=== PATIENT | female | born 1945 | race Caucasian/White ===

== ENCOUNTER 2024-09-04 06:03 | Day surgery (SDC) | payer OTHER, SELFPAY ==
[2024-09-04] VITALS (9 sets, daily range): BP systolic 121–174; BP diastolic 62–94; PULSE 55–61; RESP 16; TEMP 36.5–36.8; O2SAT 92–100; BMI 35.9
--- OUTSIDE RECORDS SUMMARY | 2024-09-04 06:11 | XMS_ITS | Clinical Summary ---
Author Organization [facility] Address [place], [place] [address] Care Team Providers Care Child Care Assistant Name Role Phone Krista Sauceda DO Primary Care Provider [phone] Allergies Active Allergy Reactions Criticality Noted Date Comments Lisinopril Cough Medium 04/24/2018 Per [facility] clinic records Nabumetone Diarrhea 08/24/2014 Nsaids (Non-Steroidal Anti-Inflammatory Drug) Diarrhea,Other - Describe In Comment Field 08/30/2012 Due to heartburn Sulfa (Sulfonamide Antibiotics) Other - Describe In Comment Field,Rash 08/30/2012 Fluid retention Medications Medication Sig Dispensed Refills Start Date End Date Status allopurinoL (ZYLOPRIM) 100 mg tablet Take 100 mg by mouth two times daily. 02/25/2024 Active amLODIPine (NORVASC) 10 mg tablet Take 10 mg by mouth once daily. Active ascorbic acid, vitamin C, (VITAMIN C) 500 mg tablet Take 500 mg by mouth once daily. Active blood sugar diagnostic strip As directed once daily. 01/03/2024 5 Active FreeStyle Rosi 3 Sensor for continuous blood glucose monitor (CGM) As directed 1 Kit every 2 weeks. 10/11/2023 4 Active buPROPion (WELLBUTRIN XL) 300 mg Extended-Release tablet Take 300 mg by mouth once daily. Active diclofenac topical (VOLTAREN) 1 % gel Apply 2 g topically to affected area(s) four times daily. Active docusate (COLACE) 100 mg capsule Take 100 mg by mouth one time if needed. Active estradioL (ESTRACE) 0.01% (0.1 mg/g) vaginal cream Insert 1 g into the vagina once weekly. 01/03/2024 Active famotidine (PEPCID) 40 mg tablet Take 40 mg by mouth two times daily. 06/19/2023 Active furosemide (LASIX) 40 mg tablet Take 20 mg by mouth two times daily. 06/09/2024 Active lancets As directed once daily. 01/03/2024 Active levothyroxine (SYNTHROID) 25 mcg tablet Take 25 mcg by mouth before breakfast. Active melatonin 5 mg tab tablet Take 5 mg by mouth at bedtime. Active metoprolol succinate (TOPROL XL) 100 mg Sustained-Release tablet Take 100 mg by mouth once daily. Active nystatin 100,000 unit/g ointment Apply topically to affected area(s) 3 times daily if needed. 06/22/2024 Active pantoprazole (PROTONIX) 40 mg delayed-release tablet Take 40 mg by mouth once daily before a meal. 02/25/2024 Active potassium chloride (KLOR-CON M10) 10 mEq extended-release tablet (part/cryst) Take 40 mEq by mouth once daily with a meal. 04/13/2024 Active rOPINIRole (REQUIP) 0.25 mg tablet Take 0.25 mg by mouth two times daily. 08/30/2023 Active venlafaxine (EFFEXOR XR) 150 mg Extended-Release capsule Take 150 mg by mouth once daily with evening meal. 09/28/2023 Active medication order composer Tumeric one daily 07/26/2024 Active lactobacillus combination no.4 (Probiotic) 3 billion cell cap Take by mouth once daily. 07/26/2024 Active coenzyme q10 (CoQ-10) 100 mg cap Take 1 Capsule (100 mg) by mouth once daily. 07/26/2024 Active calcium carbonate-vitamin D3 600 mg-20 mcg (800 unit) tab Take by mouth once daily. 07/26/2024 Active acetaminophen (Tylenol Extra Strength) 500 mg tablet Take 2 Tablets (1,000 mg) by mouth every 6 hours if needed. Max acetaminophen dose: 4000mg in 24 hrs. 07/26/2024 Active warfarin (COUMADIN) 5 mg tabletIndications: Paroxysmal atrial fibrillation (HC),Anticoagulati on monitoring, INR range 2-3 Take by mouth 08/30: Hold; 08/31: Hold; 09/01: Hold; 09/02: Hold; 09/03: Hold; Otherwise 7.5 mg every day in the evening OR as directed 08/30/2024 Active warfarin (COUMADIN) 5 mg tabletIndications: Paroxysmal atrial fibrillation (HC),Anticoagulati on monitoring, INR range 2-3 Patient reports taking 1.5 tabs (7.5mg) daily 07/26/2024 4 Discontinued (Reorder (E-cancel not sent)) warfarin (COUMADIN) 5 mg tabletIndications: Paroxysmal atrial fibrillation (HC),Anticoagulati on monitoring, INR range 2-3 Take by mouth 7.5 mg (5 mg x 1.5) daily or as directed. 08/07/2024 4 Discontinued (Reorder (E-cancel not sent)) warfarin (COUMADIN) 5 mg tabletIndications: Paroxysmal atrial fibrillation (HC),Anticoagulati on monitoring, INR range 2-3 Hold 5 days (08/30 - 09/03) otherwise take by mouth 7.5 mg (5 mg x 1.5) daily in the evening or as directed. 08/29/2024 4 Discontinued (Other - add note to specify (E-cancel not sent)) Active Problems Problem Noted Date Diagnosed Date Anxiety 08/14/2024 GERD (gastroesophageal reflux disease) Hyperlipemia 08/14/2024 Hypothyroidism 08/14/2024 Impaired fasting glucose 08/14/2024 Prediabetes 08/14/2024 Sleep apnea 08/14/2024 Overview (08/14/2024): CPAP- patient using this everynight. 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 Dent - open right inguinal hernia repair with mesh) 08/29/2024 Anticoagulation (warfarin) [facility] [address] [facility] [place] [address] 1, [facility] Inr Clinic Anticoagulation (Preop OV) 08/29/2024 Travel 08/16/2024 Orders Only [facility] [address] [facility] [place] [address] Jus Dent MD <No scans attached> 08/14/2024 1:20 PM CDT Office Visit [facility] [address] [facility] [place] [address] Krista Sauceda DO Establish Care; Hand Pain/problem (Lump on R hand with R wrist pain); Derm Problem (Spots on neck ) 08/14/2024 Telephone [facility] Cancer [facility] [address] [place] [phone] [facility] Cancer Referral ( Malignant neoplasm of left female breast, unspecified estrogen receptor status) 08/14/2024 Travel 08/08/2024 Patient Outreach [facility] Care Management - Care Management Navigation/[facility] [address] [place], [place] [id number] Ranjeet Kothari [facility] (Care Guide Community Resource Navigation/) 08/04/2024 Anticoagulation (warfarin) [facility] [address] [place] [address] 1, [facility] Inr Clinic Anticoagulation 08/03/2024 2:00 PM CDT Ancillary Procedure [facility] [address] [facility] [place] [address] 08/03/2024 1:30 PM CDT Orders Only [facility] [address] [facility] [place] [address] Lab, [place] [facility] 08/03/2024 Travel 07/31/2024 1:30 PM CDT Office Visit [facility] [address] [facility] [place] [address] Jus Dent MD Consult (Left inguinal hernia referred by Maggie ADKINS) 07/31/2024 Travel 07/26/2024 Telephone [facility] [address] [place] [address] Shaqra, Krista Edwige, DO Anticoagulation (New Patient Education ) 07/26/2024 Anticoagulation (warfarin) [facility] [address] [place] [address] 1, [facility] Inr [facility] Anticoagulation (Chart Update) 07/14/2024 Telephone [facility] [address] [place] [address] Shaqra, Krista Edwige, DO Anticoagulation (Unable to Contact) 07/12/2024 Anticoagulation (warfarin) [facility] [address] [place] [address] 1, [facility] Anticoagulation 07/12/2024 Telephone [facility] [address] [place] [address] Shaqra, Krista Edwige, DO Anticoagulation (INR Orders) 07/11/2024 1:35 PM CDT Office Visit [address] [address] Maggie Houser PA Hospital F/U (Ribs/Lungs right sided - hurts especially when coughing ) 07/11/2024 Travel 07/06/2024 8:20 PM CDT - 07/06/2024 10:02 PM CDT Emergency [facility] [address] [place] [address] Kathy Becerra NP Fall, initial encounter (Primary Dx); Contusion of left knee, initial encounter; Supratherapeutic INR; Unilateral inguinal hernia without obstruction or gangrene, recurrence not specified; Contusion of right chest wall, initial encounter Discharge Disposition: Home Self Care 07/06/2024 Travel from Last 3 Months Immunizations Name Administration Dates Next Due Influenza, High-dose Inactivated 09/19/2019 Influenza, High-dose Quadrivalent Inactivated Influenza, IIV4 08/04/2021,08/09/2020 Influenza, Inactivated AIIV4 (Age 65+ Years) Preserv Free 10/28/2022 Pneumococcal Conj 20-valent (Prevnar 20) 022 Pneumococcal Poly,23-Valent (Pneumovax) 08/30/20 06 Pneumococcal conj 13-Valent (Prevnar 13) 018 RSV, Recombinant ADJ Reconst ituted (Arexvy 120MCG/0.5mL) 11/23/2023 Td (Age >=7 Years) 08/30/2006,08/30/1995 Td, Preservative Free (age >= 7 Years) 5 Tdap 02/25/2024,08/19/2012 Zoster (Shingrix-RZV, recombinant) 08/04/2024, Social History Tobacco Use Types Packs/Day Years Used Date Smoking Tobacco: Former Cigarettes Smokeless Tobacco: Never Comments:Smoked 0.5 ppd for 15 years in 20s-30s Alcohol Use Standard Drinks/Week Comments Not Currently 0 (1 standard drink = 0.6 oz pur e alcohol) Social Connections Answer Date Recorded Frequency of Communication with Friends and Fami ly 0 07/11/2024 Financial Resource Strain Answer Date R ecorded Difficulty of Paying Living Expenses 1 08/08/2024 Difficulty of Paying Living Expenses 2 08/08/2024 Food Insecurity Answer Date Recorded Worried About Running Out of Food in the Last Ye ar 1 07/11/2024 Transportation Needs Answer Date Record ed Lack of Transportation (Medical) 1 07/11/2024 Housing Stability Answer Date Recorded Unable to Pay for Housing in the Last Year 1 07/11/2024 Sex and Gender Information Value Date Recorded Sex Assigned at Not on file Gender Identity Not on file Sexual Orientation Not on file Obstetrics History Last Filed Vital Signs Vital Sign Reading Time Taken Comments Blood Pressure 122/71 08/29/2024 11:25 AM CDT Pulse 61 08/29/2024 11:25 AM CDT Temperature 36.9 ??C (98.5 ??F) 07/06/2024 8:22 PM CD T Respiratory Rate 20 07/06/2024 8:22 PM CDT Oxygen Saturation 94% 08/29/2024 11:25 AM CDT Inhaled Oxygen Concentration - - Weight 97.8 kg (215 lb 9.6 oz) 08/29/2024 11:25 AM CDT Height 165.1 cm (5' 5) 08/14/2024 1:30 PM CDT Body Mass Index 35.88 08/14/2024 1:30 PM CDT Plan of Treatment Upcoming Encounters Date Type Department Care Team (Late st Contact Info) Description 09/12/2024 1:00 PM CDT Office Visit [facility] [address] [place] [address] Abigail Caceres MD [address] [facility] [address] [place] [address] 09/13/2024 10:15 AM CDT Orders Only [facility] [address] [place] [address] [place] 09/20/2024 3:25 PM CDT Office Visit [facility] [address] [place] [address] Krista Sauceda, DO [address] [place] [address] Health Maintenance Due Date Last Done Comments Depression screening for age 12+ 1958 Hepatitis C screening for ag e 18-79 1964 DEXA/DXA scan for age 65+ 2011 Influenza for age 65+ 07/23/2024 09/14/2023 , 10/28/2022, 08/04/2021, Additional history exists COVID-19 vaccine series ( season) 2024 08/04/2024, 02/25/2024, 09/14/2023, Additional history exists Medicare Wellness for age 65+ 06/10/2025 (Verified in Care Everywhere or Patient Record) BMI (ht and wt on same day) for age 18+ 08/14/2025 08/14/2024 Tetanus booster 02/24/2034 02/25/2024, 07/24, 08/30/2006, Additional history exists Pneumococcal series for age 65+ Completed 06/05/2022, 04/07/2018, 08/30/2006 RSV vaccine for adults or Completed 11/23/2023 Tdap Completed 02/25/2024, 08/19/2012 Zoster (shingles) series for age 50+ Completed 08/04/2024, 02/25/2024 Procedures Procedure Name Priority Date/Time Associated Diagnosis Comments POTASSIUM Routine 08/29/2024 12:26 PM CDT Pre-op examination PROTIME-INR STAT 08/29/2024 12:25 PM CDT Anticoagulation monitoring, INR range 2-3 MR CHEST WWO Routine 08/03/2024 2:12 PM CDT Cyst of mediastinum INR,POCT Routine 08/03/2024 1:18 PM CDT Paroxysmal atrial fibrillation (HC) PROTIME-INR Routine 07/11/2024 2:48 PM CDT Paroxysmal atrial fibrillation (HC) CT CHEST ABDOMEN PELVIS WO STAT 07/06/2024 9:[address] HEAD BRAIN WO STAT 07/06/2024 9:14 PM CDT PROTIME-INR STAT 07/06/2024 9:13 PM CDT XR KNEE 2 VIEWS LEFT STAT 07/06/2024 9:10 PM CDT from Last 3 Months Results * POTASSIUM (08/29/2024 12:26 PM CDT) POTASSIUM 4.5 3.5 - 5.3 mmol/L [facility] Blood BLOOD SPECIMEN / Unknown 08/29/2024 12:26 PM CDT 08/29/2024 12:28 PM CDT Krista Betancourthilaria [facility] Performing Organization Address City/[facility]/ZIP Co de Phone Number [employer] [facility] [address] [place] [address], [employer] [facility] [address] [place] [address] * (ABNORMAL) PROTIME-INR (08/29/2024 12:25 PM CDT) Only the most recent of3 resultswithin the time period is included. INR 2.4(H) <1.3 08/29/2024 1:34 PM CDT [facility] PROTIME 26.1(H) 10.3 - 12.3 sec 08/29/2024 1:34 PM CDT [facility] Blood BLOOD SPECIMEN / Unknown Venipuncture / Unknown 08/29/2024 12:25 PM CDT 08/29/2024 12:[address] [facility] - 08/29/2024 1:34 PM CDT ?Therapeutic Range 2.0-3.0 for most anticoagulated patients 2.5-3.5 or 4.0 for high risk patients The INR is only used for patients on stable oral anticoagulant therapy. It makes no significant contribution to the diagnosis or treatment of patients whose Protime is prolonged for other reasons. INR results are increased when heparin levels exceed 1.0 U/mL, which corresponds to an aPTT >125 seconds if the patient is on UFH. Krista Sauceda DO HEMATOLOGY [facility] [address] [place] [id number] * MR MIROSLAVA CASTRO (08/03/2024 2:12 PM CDT) Anatomical Region Laterality Modality HEART, CHEST, THORAX Magnetic Re sonance 08/04/2024 12:5 8 PM CDT Narrative 08/04/2024 12:58 PM CDT For Patients: ??As a result of the Cures Act, medical imaging exams and procedure reports are released immediately into your electronic medical record. ??You may view this report before your referring provider. ??If you have questions, please contact your health care provider. INDICATION: Mediastinal cyst. COMPARISON: CT scan of the chest, abdomen, and pelvis dated 06 July 2024. TECHNIQUE: Chest MRI with T1, T2, and postcontrast images. Intravenous gadolinium administered. FINDINGS: 3.8 x 3.2 cm left anterior mediastinal cyst containing hemorrhagic debris with no enhancing component. No mediastinal or hilar adenopathy. Moderate hiatal hernia. Bilateral renal cysts. Impression : 1. 3.8 cm cyst containing hemorrhagic debris in the left anterior mediastinum. This could represent a thymic or pericardial cyst. Dictated by Andre Leonard MD @ 08/04/2024 12:58:54 PM (Electronically Signed) Procedure Note Andre Leonard MD - 08/04/2024 For Patients: As a result of the Cures Act, medical imagingexams and procedure reports are released immediately into your electronicmedical record. You may view this report before your referring provider.If you have questions, please contact your health care provider. INDICATION: Mediastinal cyst. COMPARISON: CT scan of the chest, abdomen, and pelvis dated 06 July 2024. TECHNIQUE: Chest MRI with T1, T2, and postcontrast images. Intravenous gadoliniumadministered. FINDINGS: 3.8 x 3.2 cm left anterior mediastinal cyst containing hemorrhagic debriswith no enhancing component. No mediastinal or hilar adenopathy. Moderate hiatal hernia. Bilateral renal cysts. Impression : 1. 3.8 cm cyst containing hemorrhagic debris in the left anteriormediastinum. This could represent a thymic or pericardial cyst. Dictated by Andre Leonard MD @ 08/04/2024 12:58:54 PM (Electronically Signed) Maggie Delia Malecha PA MR * (ABNORMAL) INR,POCT (08/03/2024 1:18 PM CDT) INR 2.1(H) <1.3 08/03/2024 1:19 PM CDT [facility] Blood BLOOD SPECIMEN / Unknown Capillary / Unknown 08/03/2024 1:18 PM CDT 08/03/2024 1:18 PM CDT Narrative [facility] - 08/03/2024 1:19 PM CDT ?Therapeutic Range 2.0-3.0 for most anticoagulated patients 2.5-3.5 or 4.0 for high risk patients Krista Sauceda DO LABORATORY [facility] [address] [place] [address], * CT CHEST ABDOMEN PELVIS WO (07/06/2024 9:15 PM CDT) Anatomical Region Laterality Modality Abdomen, Pelvis, AORTA, LIVER, SPLEEN, CHEST Computed Tomography 07/06/2024 9:33 PM CDT Narrative 07/06/2024 9:33 PM CDT For Patients: ??As a result of the Cures Act, medical imaging exams and procedure reports are released immediately into your electronic medical record. ??You may view this report before your referring provider. ??If you have questions, please contact your health care provider. Indication: Fall, right lower lateral rib pain Technique: Noncontrast CT of the chest, abdomen, and pelvis with multiplanar reformats. Comparison: None Findings: Chest: Lungs: No consolidation. No effusion. No pneumothorax. Scattered pulmonary nodules measure up to 4 millimeters, no dedicated follow-up recommended. Geographic areas of mild mosaicism noted. Mediastinum: No acute abnormality appreciated. There is a 3.9 centimeter cystic lesion within the anterior mediastinum with peripheral calcifications, no prior examination available for comparison. Calcific coronary arterial and aortic atherosclerosis. Mild cardiomegaly. Small to moderate hiatal hernia. Lymph nodes: No gross lymphadenopathy. Soft tissues: No acute abnormality appreciated. Bones: Right shoulder arthroplasty. Surgical anchors at the left shoulder. Degenerative changes of the spine with no acute abnormality appreciated. Abdomen and Pelvis: Hepatobiliary: Hepatic steatosis. No acute abnormality appreciated. Spleen: Calcified granulomata. Pancreas: No acute abnormality appreciated. Adrenal glands: No acute abnormality appreciated. Kidneys: No significant parenchymal abnormality appreciated. No visualized calculi. No hydronephrosis. Bowel: No obstruction. Diverticulosis. No focal perienteric or pericolonic stranding is appreciated. The appendix is visualized and appears unremarkable. Vascular: Calcified atherosclerosis. Lymph nodes: No gross lymphadenopathy. Peritoneum: No free air. No free fluid. : Mild bladder wall thickening and adjacent stranding. Soft tissues: There are a pair of fat containing left inguinal hernias containing mild stranding of the internal fat. Tiny fat containing umbilical hernia. Bones: Degenerative changes with no acute abnormality appreciated. Impression: 1. No acute traumatic abnormality appreciated. 2. There are a pair of fat containing left inguinal hernias containing mild stranding of the internal fat, can not exclude strangulation/incarceration. Correlation for reducibility recommended. 3. There is a 3.9 centimeter cystic lesion with peripheral calcifications in the anterior mediastinum no prior examination available for comparison. Recommend correlation with prior imaging if available. If not, nonemergent outpatient MRI with and without contrast may be considered for further evaluation. 4. Hepatic steatosis. Please note that all CT scans at this facility use dose modulation, iterative reconstruction, and/or weight-based dosing when appropriate to reduce radiation dose to as low as reasonably achievable. Dictated by Jacek Luevano MD @ 07/06/2024 9:33:08 PM (Electronically Signed) Procedure Note Jacek Luevano MD - 07/06/2024 For Patients: As a result of the 21st Century Cures Act, medical imagingexams and procedure reports are released immediately into your electronicmedical record. You may view this report before your referring provider.If you have questions, please contact your health care provider. Indication: Fall, right lower lateral rib pain Technique: Noncontrast CT of the chest, abdomen, and pelvis with multiplanarreformats. Comparison: None Findings: Chest: Lungs: No consolidation. No effusion. No pneumothorax. Scattered pulmonarynodules measure up to 4 millimeters, no dedicated follow-up recommended.Geographic areas of mild mosaicism noted. Mediastinum: No acute abnormality appreciated. There is a 3.9 centimetercystic lesion within the anterior mediastinum with peripheralcalcifications, no prior examination available for comparison. Calcificcoronary arterial and aortic atherosclerosis. Mild cardiomegaly. Small tomoderate hiatal hernia. Lymph nodes: No gross lymphadenopathy. Soft tissues: No acute abnormality appreciated. Bones: Right shoulder arthroplasty. Surgical anchors at the left shoulder.Degenerative changes of the spine with no acute abnormality appreciated. Abdomen and Pelvis: Hepatobiliary: Hepatic steatosis. No acute abnormality appreciated. Spleen: Calcified granulomata. Pancreas: No acute abnormality appreciated. Adrenal glands: No acute abnormality appreciated. Kidneys: No significant parenchymal abnormality appreciated. No visualizedcalculi. No hydronephrosis. Bowel: No obstruction. Diverticulosis. No focal perienteric or pericolonicstranding is appreciated. The appendix is visualized and appearsunremarkable. Vascular: Calcified atherosclerosis. Lymph nodes: No gross lymphadenopathy. Peritoneum: No free air. No free fluid. : Mild bladder wall thickening and adjacent stranding. Soft tissues: There are a pair of fat containing left inguinal herniascontaining mild stranding of the internal fat. Tiny fat containingumbilical hernia. Bones: Degenerative changes with no acute abnormality appreciated. Impression: 1. No acute traumatic abnormality appreciated. 2. There are a pair of fat containing left inguinal hernias containingmild stranding of the internal fat, can not excludestrangulation/incarceration. Correlation for reducibility recommended. 3. There is a 3.9 centimeter cystic lesion with peripheral calcificationsin the anterior mediastinum no prior examination available for comparison.Recommend correlation with prior imaging if available. If not, nonemergentoutpatient MRI with and without contrast may be considered for furtherevaluation. 4. Hepatic steatosis. Please note that all CT scans at this facility use dose modulation,iterative reconstruction, and/or weight-based dosing when appropriate toreduce radiation dose to as low as reasonably achievable. Dictated by Jacek Luevano MD @ 07/06/2024 9:33:08 PM (Electronically Signed) Kathy Becerra NP CT * CT HEAD BRAIN WO (07/06/2024 9:14 PM CDT) Anatomical Region Laterality Modality HEAD, BRAIN Computed Tomogra phy 07/06/2024 9:34 PM CDT Narrative 07/06/2024 9:34 PM CDT For Patients: ??As a result of the Cures Act, medical imaging exams and procedure reports are released immediately into your electronic medical record. ??You may view this report before your referring provider. ??If you have questions, please contact your health care provider. Indication: Polytrauma, blunt Technique: Noncontrast CT through the head with multiplanar reformats Comparison: None Findings: Brain: No acute hemorrhage. No acute infarct. No significant mass effect or midline shift. No gross evidence of a mass lesion or cerebral edema. Moderate chronic microvascular ischemic disease. Mild global parenchymal volume loss. Ventricles: No acute abnormality appreciated. Orbits, sinuses, mastoids: No acute abnormality appreciated. Calvarium and soft tissues: No acute abnormality appreciated. Impression: No acute abnormality appreciated. Please note that all CT scans at this facility use dose modulation, iterative reconstruction, and/or weight-based dosing when appropriate to reduce radiation dose to as low as reasonably achievable. Dictated by Jacek Luevano MD @ 07/06/2024 9:34:10 PM (Electronically Signed) Procedure Note Jacek Luevano MD - 07/06/2024 For Patients: As a result of the Cures Act, medical imagingexams and procedure reports are released immediately into your electronicmedical record. You may view this report before your referring provider.If you have questions, please contact your health care provider. Indication: Polytrauma, blunt Technique: Noncontrast CT through the head with multiplanar reformats Comparison: None Findings: Brain: No acute hemorrhage. No acute infarct. No significant mass effector midline shift. No gross evidence of a mass lesion or cerebral edema.Moderate chronic microvascular ischemic disease. Mild global parenchymalvolume loss. Ventricles: No acute abnormality appreciated. Orbits, sinuses, mastoids: No acute abnormality appreciated. Calvarium and soft tissues: No acute abnormality appreciated. Impression: No acute abnormality appreciated. Please note that all CT scans at this facility use dose modulation,iterative reconstruction, and/or weight-based dosing when appropriate toreduce radiation dose to as low as reasonably achievable. Dictated by Jacek Luevano MD @ 07/06/2024 9:34:10 PM (Electronically Signed) Kathy Becerra EMISSIONS TESTING TECHNICIAN CT * XR KNEE 2 VIEWS LEFT (07/06/2024 9:10 PM CDT) Anatomical Region Laterality Modality KNEE L Digital Radiogra phy 07/06/2024 9:34 PM CDT Narrative 07/06/2024 9:34 PM CDT For Patients: ??As a result of the Cures Act, medical imaging exams and procedure reports are released immediately into your electronic medical record. ??You may view this report before your referring provider. ??If you have questions, please contact your health care provider. Indication: Trauma Technique: Two views of the left knee Comparison: None Findings/Impression: Status post knee arthroplasty with no acute radiographic abnormality appreciated. Dictated by Jacek Luevano MD @ 07/06/2024 9:34:37 PM (Electronically Signed) Procedure Note Jacek Luevano MD - 07/06/2024 For Patients: As a result of the Cures Act, medical imagingexams and procedure reports are released immediately into your electronicmedical record. You may view this report before your referring provider.If you have questions, please contact your health care provider. Indication: Trauma Technique: Two views of the left knee Comparison: None Findings/Impression: Status post knee arthroplasty with no acute radiographic abnormalityappreciated. Dictated by Jacek Luevano MD @ 07/06/2024 9:34:37 PM (Electronically Signed) Kathy Becerra NP [facility] from Last 3 Months Care Teams Child Care Assistant Relationship Specialty Start Date End Date Krista [place] [address] [address] [place] [address] PCP - General Family Practice 07/11/24
[2024-09-04] MEDS: CEFAZOLIN 2 GM INJ IVP (08:24)
[2024-09-04] MEDS: LACTATED RINGERS 1000 ML 1,000 ML 100 ML IV (08:53)
[2024-09-04] MEDS: SODIUM CHLORIDE 0.9 % (FLUSH) 10 ML SYRINGE IVF (08:53)
--- NOTE | 2024-09-04 09:11 | W.PM.H&PU ---
History & Physical Update History & Physical Update H&P Reviewed and patient assessed: No changes noted H&P Updates: Stop Coumadin 6 days ago.
--- NOTE | 2024-09-04 09:13 | P.GSOP_ITS ---
Operative Note Date of procedure: 09/04/24 Pre-op diagnosis: 1. Symptomatic left inguinal hernia. Post-op diagnosis: 1. Direct inguinal hernia. 2. Preperitoneal fat incarcerated through the internal ring with no evidence of incarcerated peritoneum. Type of Procedure: 1. Open left inguinal hernia repair with mesh. Indications: 78-year-old female on Coumadin was seen in clinic for evaluation of a left inguinal hernia. Patient recently had a traumatic fall and during her workup of a fall she was noted to have a left inguinal hernia. Patient denied left inguinal pain. She has a history of right inguinal hernia repair. Patient's abdominal CT from June of 2024 showed fat containing left inguinal hernia with mild fat stranding. There was no intestine incarcerated in the hernia. On clinical exam with the patient standing up I am able to palpate the left inguinal hernia that was reducible. Given patient's clinical history and her CT findings, an open left inguinal hernia repair with mesh was recommended. The procedure was discussed in detail. The risks associated procedure including infection, bleeding, injury to internal organs, and hernia recurrence were all discussed with the patient, and she agreed to proceed. Procedure Description: After discussing the risks and benefits of the procedure, the patient signed informed consent.? The operative site was marked and the patient was brought to the operating room and placed on the operating table in supine position.? Care was taken to pad the patient's pressure points.?? The patient was then sedated by anesthesia.?? The operative site was then prepped and draped in the usual sterile fashion.? A time-out was then performed. Surgical site was prepped and draped in sterile fashion. Site of the incision was marked with a marking pen and local anesthetic was injected. An oblique incision was made just above and medial to the left inguinal ligament. Subcutaneous tissue was dissected to external obliques. Superficial subcutaneous vascular branches were clamped, divided and tied with 3-0 Vicryl ties. Small inc ision was made through the external oblique aponeurosis with scalpel. I then used Metzenbaum scissors to dissect under external obliques and extend my incision. Mosquito clamps were placed on the edges of external oblique exposing the inguinal floor. The left Ilioinguinal nerve was identified and was going through the plain of dissection. The nerve was divided proximally and distally and a 3 cm segment of it was excised. This was not sent to pathology. I then identified the hernia sac. This was incarcerated in subcutaneous tissue just below the inguinal ligament and superficial to it. I bluntly dissected subcutaneous tissues around the hernia sac until the hernia sac was mobilized and eviscerated. Preperitoneal fat was incarcerated through the internal ring and another opening through the inguinal floor was noted with preperitoneal fat incarcerated through this opening. Subcutaneous fat was dissected around the hernia openings with cautery. A thin round ligament was identified and divided with cautery. The indirect hernia sac was examined and no peritoneal edge was noted. The inguinal floor surrounding the defects was weak. The direct hernia sac was pushed into preperitoneal space. Mesh plug was inserted into this preperitoneal space and secured in place with interrupted 0-0 Nurolon sutures. Similarly, preperitoneal fat that was incarcerated through the internal ring was then reduced. A mesh plug was placed through the internal ring and secured in place with interrupted 0-0 Nurolon sutures. A Bard mesh onlay was also used for hernia repair. The mesh onlay was sutured in place with interrupted 0-0 Neurolon sutures to the conjoint tendon medially and shelving edge laterally, pubic tubercle inferiorly. External oblique aponeurosis was closed with a running 3-0 Vicryl. Additional local anesthetic was injected into subcutaneous tissues. Sancho's fascia and subcutaneous tissue was re-approximated with interrupted Vicryl stitches. Skin incision was closed with 4-0 Monocryl subcuticular stitch. Steri strips and sterile dressing were applied over incision. All counts were correct at the end of the case. Patient tolerated this procedure well and was transferred to same day surgery in stable condition. Findings: Direct hernia with incarcerated preperitoneal fat. Also, incarcerated preperitoneal fat through internal ring without true indirect hernia peritoneal sac. Implants: Mesh plug x2 and mesh onlay. Anesthesia: MAC and local Surgeon: Jus Dent MD Estimated blood loss (mL): 10 Condition: stable Disposition: same day
--- NOTE | 2024-09-04 09:23 | W.ANESCHARGE ---
Anesthesia Charges Start Date/Time Anesthesia Start Date: 09/04/24 Anesthesia Start Time: 09:20 Stop Date/Time Anesthesia Stop Date: 09/04/24 Anesthesia Stop Time: 11:09 Summary Extremes of Age - Over 70 or under 1: MDA
[2024-09-04] MEDS: BUPIVACAINE 0.25% 30 ML INJECTION (10:40)
[2024-09-04] MEDS: LIDOCAINE 1%-EPI 1:100,000 20 ML INFILTRATI (10:40)
--- NOTE | 2024-09-04 11:12 | P.ANES_ITS ---
Anesthesia Charges Start Date/Time Anesthesia Start Date: 09/04/24 Anesthesia Start Time: 09:20 Stop Date/Time Anesthesia Stop Date: 09/04/24 Anesthesia Stop Time: 11:09 Summary Extremes of Age - Over 70 or under 1: [employer]
[2024-09-04] MEDS: HYDROCODONE-ACETAMIN 5-325 MG 1 TAB PO ×2 (11:55→12:45)
== END 2024-09-04 13:10 | disposition home or self-care (01) ==
PROVIDERS: PCP Family Medicine; Visit Provider Surgery
PROC: (CPT 49507; principal; 2024-09-04 09:30)
DX: K40.30 Unilateral inguinal hernia, with obstruction, without gangrene, not specified as recurrent (principal); R73.03 Prediabetes; I10 Essential (primary) hypertension; I48.0 Paroxysmal atrial fibrillation; Z79.01 Long term (current) use of anticoagulants; F41.9 Anxiety disorder, unspecified; K21.9 Gastro-esophageal reflux disease without esophagitis; E78.5 Hyperlipidemia, unspecified; E03.9 Hypothyroidism, unspecified; R73.01 Impaired fasting glucose
CPT/HCPCS: 49507; 00830; 82962; 99100; A9270; C1781; J0665; J0690; J2405; J2704; J3010; J3490; J7120

== ENCOUNTER 2025-03-13 20:14 | Outpatient (CLI) | payer MEDICARE, SELFPAY | END 2025-03-13 20:15 | disposition home or self-care (01) | LOC: SLEEP 20:14 | PROVIDERS: PCP Family Medicine; Visit Provider Internal Medicine | DX: G47.33 Obstructive sleep apnea (adult) (pediatric) (principal) | CPT/HCPCS: 95811 ==

== ENCOUNTER 2025-06-01 14:52 | Emergency (ER) | payer MEDICARE, SELFPAY ==
[2025-06-01] VITALS (19 sets, daily range): BP systolic 104–162; BP diastolic 73–141; PULSE 58–75; RESP 9–26; TEMP 37.1; O2SAT 93–99; BMI 35.5
--- OUTSIDE RECORDS SUMMARY | 2025-06-01 14:54 | XMS_ITS | Clinical Summary ---
Author Organization [employer] [facility] Address [address] [place] [id number] Care Team Providers Care Outpatient Psychiatrist Name Role Phone Krista Sauceda DO Primary Care Provider [phone] Allergies Active Allergy Reactions Criticality Noted Date Comments Lisinopril Cough Medium 04/24/2018 Per [facility] clinic records Nabumetone Diarrhea 08/24/2014 Nsaids (Non-Steroidal Anti-Inflammatory Drug) Diarrhea,Other - Describe In Comment Field 08/30/2012 Due to heartburn Sulfa (Sulfonamide Antibiotics) Other - Describe In Comment Field,Rash 08/30/2012 Fluid retention Medications ascorbic acid, vitamin C, (VITAMIN C) 500 mg tablet Take 500 mg by mouth once daily. Active diclofenac topical (VOLTAREN) 1 % gel Apply 2 g topically to affected area(s) four times daily. Active docusate (COLACE) 100 mg capsule Take 100 mg by mouth one time if needed. Active levothyroxine (SYNTHROID) 25 mcg tablet Take 25 mcg by mouth before breakfast. Active melatonin 5 mg tab tablet Take 5 mg by mouth at bedtime. Active nystatin 100,000 unit/g ointment Apply topically to affected area(s) 3 times daily if needed. 06/22/20 24 Active medication order composer Tumeric one daily 07/26/20 24 Active lactobacillus combination no.4 (Probiotic) 3 billion cell cap Take by mouth once daily. 07/26/20 24 Active coenzyme q10 (CoQ-10) 100 mg cap Take 1 Capsule (100 mg) by mouth once daily. 07/26/20 24 Active calcium carbonate-vitami n D3 600 mg-20 mcg (800 unit) tab Take by mouth once daily. 07/26/20 24 Active acetaminophen (Tylenol Extra Strength) 500 mg tablet Take 2 Tablets (1,000 mg) by mouth every 6 hours if needed. Max acetaminophen dose: 4000mg in 24 hrs. 07/26/20 24 Active FreeStyle Rosi 2 SensorIndication s:Prediabetes To be used to read blood sugars per metalizing machine operator's directions. 6 Each 3 10/30/20 24 Active fluticasone (50 mcg per actuation) nasal solution (FLONASE)Indicat ions:Post-nasal drip Inhale 2 Sprays in both nostrils once daily. 16 g 3 12/13/19 25 Active famotidine (PEPCID) 20 mg tabletIndication s:Chronic GERD Take 1 Tablet (20 mg) by mouth two times daily. 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 90 Capsule 3 01/10/20 25 Active furosemide (LASIX) 20 mg tabletIndication s:Bilateral lower extremity edema Take 1 Tablet (20 mg) by mouth once daily. 90 Tablet 3 01/24/20 25 Active allopurinoL 100 mg tabletIndication s:Chronic gout of left ankle, unspecified cause Take 1 Tablet (100 mg) by mouth once daily. 90 Tablet 1 03/23/20 25 Active FreeStyle Rosi 3 Sunset for continuous blood glucose monitor (CGM)Indications :Prediabetes To be used to read blood sugars follow metalizing machine operator directions. 1 Each 03/26/20 25 Active FreeStyle Rosi 3 Plus Sensor for continuous blood glucose monitor (CGM)Indications :Prediabetes To be used to read blood sugars, follow metalizing machine operator directions. Change each sensor every 15 days 2 Each 11 03/26/20 25 Active warfarin 5 mg tabletIndication s:Paroxysmal atrial fibrillation (HC),Anticoagula tion monitoring, INR range 2-3 Take by mouth 7.5 mg (5 mg x 1.5) every day in the evening OR as directed 140 Tablet 04/02/20 25 Active CPAPIndications: Obstructive sleep apnea syndrome RESMED CPAP (E0601) machine for home use at pressure: 9 cmw, Choice of mask (A7030 or A7034) w/full face cushion (A7031) x1/mo, nasal cushion (A7032) x2/mo, or nasal pillows (A7033) x 2/mo; Length of Need: 99 months; Frequency of use: Daily 1 Each 04/11/20 25 Active gabapentin 100 mg capsuleIndicatio ns:PLMD (periodic limb movement disorder) Take 1 capsule by mouth at bedtime, if not feeling sleep is better can increase by 1 pill to 200mg at bedtime 60 Capsule 3 04/11/20 25 Active potassium chloride 10 mEq extended-release tablet (part/cryst)Karley cations:Hypokale danya Take 4 Tablets (40 mEq) by mouth once daily with a meal. 120 Tablet 3 04/20/20 25 Active vibegron 75 mg tabletIndication s:Mixed stress and urge urinary incontinence Take 1 Tablet (75 mg) by mouth once daily. 90 Tablet 3 04/25/20 25 Active amLODIPine 10 mg tabletIndication s:Hypertension Take 1 Tablet (10 mg) by mouth once daily. 30 Tablet 05/07/20 25 Active rOPINIRole 0.25 mg tabletIndication s:Restless leg syndrome Take 1 Tablet (0.25 mg) by mouth at bedtime. 90 Tablet 05/17/20 25 Active metoprolol succinate 100 mg Sustained-Releas e tabletIndication s:Paroxysmal atrial fibrillation (HC),Hypertensio n Take 1 Tablet (100 mg) by mouth once daily. 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 90 Tablet 05/26/20 25 Active pantoprazole (PROTONIX) 40 mg delayed-release tabletIndication s:Gastroesophage al reflux disease, unspecified whether esophagitis present Take 1 Tablet (40 mg) by mouth once daily before a meal. 90 Tablet 3 05/31/20 25 Active amLODIPine (NORVASC) 10 mg tablet Take 10 mg by mouth once daily. 025 Discontin ued(Reord er (E-cancel not sent)) metoprolol succinate (TOPROL XL) 100 mg Sustained-Releas e tablet Take 100 mg by mouth once daily. 025 Discontin ued(Reord er (E-cancel not sent)) pantoprazole (PROTONIX) 40 mg delayed-release tablet Take 40 mg by mouth once daily before a meal. 02/25/20 24 025 Discontin ued(Reord er (E-cancel not sent)) rOPINIRole (REQUIP) 0.25 mg tablet Take 0.25 mg by mouth two times daily. 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 90 Tablet 3 11/27/19 025 Discontin ued(Reord er (E-cancel not sent)) Active Problems Problem Noted Date Diagnosed Date Prediabetes 11/02/2024 Varicose veins of both lower extremities with pa in 10/30/2024 Overview (10/30/2024): US imaging 06/2022 showing competent R LE veins. The left greater saphenous vein is incompetent from the mid thigh to the level of the knee. Associated incompetent GSV varicosities in the proximal calf. Bilateral lower extremity edema 09/21/2024 Anxiety 08/14/2024 GERD (gastroesophageal reflux disease) Hyperlipemia 08/14/2024 Hypothyroidism 08/14/2024 Prediabetes 08/14/2024 Sleep apnea 08/14/2024 Overview (08/14/2024): CPAP- patient using this everynight. 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 Overview (08/14/2024): Needs repeat X-ray in January 2025-Jul 2025 Anticoagulation monitoring, INR range 2-3 2023 Paroxysmal atrial fibrillation 07/11/2024 H/O repair of left rotator cuff 06/13/2023 Osteoarthritis of left glenohumeral joint 2022 Hidradenitis suppurativa 04/23/2023 Depression 03/06/2021 Moderate episode of recurrent major depressive d isorder 03/06/2021 Splenic artery aneurysm 07/18/2020 Adenomatous polyp of colon 07/08/2020 Velez's esophagus without dysplasia 07/08/2020 Hiatal hernia 07/08/2020 History of Karla fundoplication 07/08/2020 Localized edema 07/08/2020 Diverticulosis of colon 07/08/2020 Hypertrophic toenail 05/15/2020 Hypertension 04/26/2018 Breast CA 03/13/2014 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 Resolved Problems Problem Noted Date Diagnosed Date Resolved Date Impaired fasting glucose 08/14/202407/2024 SBO (small bowel obstruction) 01/01/2024 10/30/2024 Right inguinal hernia 08/30/20142023 Encounters Date Type Department Care Team Description 05/30/2025 Telephone [facility] [address] [place] [address] Sohail Krista Edwige, DO Medication Management (pantoprazole REFILL ) 05/24/2025 Refill [facility] [address] [place] [address] Sohail Krista Edwige, DO Refill Request; METOPROLOL; BUPROPION 05/17/2025 Telephone [facility] [address] [place] [address] rKista Sauceda, DO BRIDGER (Diabetic notes ) 05/10/2025 Anticoagulation (warfarin) [facility] [address] [place] [address] 1, [facility] Anticoagulation 05/10/2025 Anticoagulation (warfarin) [facility] [address] [place] [address] 1, [facility] Error-please disregard (opened in error) 05/09/2025 2:00 PM CDT [place] [facility] [address] [place] [address] [facility], [facility] 05/09/2025 Travel 05/09/2025 Telephone [facility] [address] [place] [address] Krista Sauceda Edwige, DO Form 05/07/2025 Refill [facility] [address] [place] [address] Krista Sauceda Edwige, DO Refill Request (Ropinirole 0.25mg tab ) 05/03/2025 Telephone [facility] [address] [place] [address] Sir Saucedai Edwige, DO DME Supply (Diabetic Supplies ) 05/03/[address] [address] Krista Sauceda Edwige, DO Refill Request (Amlodipine 10mg tab ) 04/25/[address] [address] Sohail Krista Edwige, DO Refill Request (POTA CHLORIDE CR 10 MEQ TAB ) 04/24/[address] [address] Krista Sauceda Edwige, DO Diabetes 04/19/2025 Refill [facility] [address] [place] [address] Krista Sauceda Edwige, DO Refill Request (Pota Chloride CR 10 meq tab) 04/11/2025 8:00 AM CDT Office Visit [address] [address] Lloyd Anderson MD Sleep Follow-up 04/11/2025 Travel 04/10/[address] [address] Krista Sauceda Edwige, DO Anticoagulation (Annual re-enrollment /) 04/02/[address] [address] Shaqra, Krista Edwige, DO Refill Request (Warfarin) 03/29/2025 1:47 PM CDT - 03/29/2025 11:59 PM CDT Hospital Encounter [facility] [address] [place] [address] Honorio Mera MD Tingum, Courtney E, PT 03/29/2025 Travel 03/29/2025 Telephone [facility] [address] [place] [address] Serafinqra Krista Edwige, DO Prior Authorization (FreeStyle Rosi 3 Plus Sensor for continuous blood glucose monitor (CGM) - PA NOT NEEDED ) 03/27/2025 2:00 PM CDT Orders Only [address] [address] Lab[facility] 03/27/2025 Anticoagulation (warfarin) [address] [address] 1, [facility] Anticoagulation 03/27/2025 Travel 03/26/2025 Orders Only [address] [address] Sir Saucedai Edwige, DO Diabetes (Want CGM upgrade) 03/16/[address] [address] Sohail Krista Edwige, DO Refill Request (allopurinol) 03/15/2025 1:20 PM CDT [place] [facility] [address] [place] [address] Guzman Martinez, OD Eye Exam (CEE) 03/14/2025 Travel 03/13/2025 9:30 PM CDT Procedure Only [address] [address] Lloyd Anderson MD 03/13/2025 Orders Only [facility] Scanner 1 scan: (1-Ord) [employer], POLYSOMNOGRAPHY, 03/13/2025 03/09/2025 1:20 PM CDT Ancillary Procedure [facility] [address] [facility] [address] 03/09/2025 Travel 03/06/2025 Telephone [facility] [address] [place] [address] Krista Sauceda, DO Anticoagulation from Last 3 Months Immunizations Immunization Administration Dates Next Due Influenza, High-dose Inactivated [...] 5 Tdap 02/25/2024,08/19/2012 Zoster (Shingrix-RZV, recombinant) 08/04/2024, Family History Medical History Relation Name Comments Cancer-breast Daughter Relation Name Status Comments Daughter Social History Tobacco Use Types Packs/Day Years Used Date Smoking Tobacco: Former Cigarettes 0.5 15 1 966 - 1981 Smokeless Tobacco: Never Tobacco Cessation:Counseling Given: Not Answered Comments:Smoked 0.5 ppd for 15 years in 20s-30s Alcohol Use Standard Drinks/Week Comments Not Currently 0 (1 standard drink = 0.6 oz pur e alcohol) PHQ-2 Answer Date Recorded PHQ-2 TOTAL SCORE 1 09/20/2024 Social Connections Answer Date Recorded Do you often feel lonely or isolated from those around you? 0 08/08/2024 Financial Resource Strain Answer Date R ecorded Difficulty of Paying Living Expenses 1 08/08/2024 Difficulty of Paying Living Expenses 2 08/08/2024 Food Insecurity Answer Date Recorded Do you worry your food will run out before you are able to buy more? 1 08/08/2024 Transportation Needs Answer Date Record ed Does lack of transportation keep you from medica l appointments? 1 08/08/2024 Does lack of transportation keep you from work, meetings or getting things that you need? 1 08/08/2024 Housing Stability Answer Date Recorded What is your housing situation today? 1 08/08/2024 Interpersonal Safety Answer Date Record ed Are you being hit, kicked, p ushed or yelled at (see row info)? No 11/21/2024 Interpersonal Safety Abuse 12 - 18 Not on file 11/21/2024 Interpersonal Safety Ambulatory Vulnerability No t on file 11/21/2024 Utilities Answer Date Recorded Do you have trouble paying f or utilities (for example, heat, electricity, water, phone)? 1 08/08/2024 Comments No Sex and Gender Information Value Date Recorded Sex Assigned at Female 11/21/2024 4:59 PM [employer] Legal Sex Female 1:33 PM CDT Gender Identity Female 11/21/2024 4:59 PM [employer] Sexual Orientation Straight 11/21/2024 4: 59 PM [employer] Obstetrics History Last Filed Vital Signs Vital Sign Reading Time Taken Comments Blood Pressure 127/78 04/11/2025 8:06 AM CDT Pulse 60 04/11/2025 8:06 AM CDT Temperature 37.1 C (98.7 F) 12/18/2024 2:10 PM [employer] Respiratory Rate 20 11/21/2024 8:04 PM [employer] Oxygen Saturation 96% 04/11/2025 8:06 AM CDT Inhaled Oxygen Concentration - - Weight 99.1 kg (218 lb 6.4 oz) 04/11/2025 8:06 A M CDT Height 163.6 cm (5' 4.41) 04/11/2025 8:06 AM CD T Body Mass Index 37.01 04/11/2025 8:06 AM CDT Plan of Treatment Upcoming Encounters Date Type Department Care Team (Late st Contact Info) Description 06/11/2025 12:55 PM CDT Office Visit [facility] [address] [place] [address] Krista Sauceda, DO [address] [place] [address] 07/24/2025 1:00 PM CDT Office Visit [facility] [address] [place] [address] Lloyd Anderson MD [address] [place] [address] Health Maintenance Due Date Last Done Comments Hepatitis C screening for age 18-79 1963 DEXA/DXA scan for age 65+ 2011 COVID-19 vaccine series (2023- season) 2025 08/04/2024, 02/25/2024, 09/14/2023, Additional history exists Medicare Wellness for age 65+ 06/10/2025 06/09/2024 (Verified in Care Everywhere or Patient Record) Influenza Vaccine (#1) 2025 , 08/04/2021, 08/09/2020, Additional history exists Depression screening for age 12+ 09/20/2025 09/20/2024 BMI (ht and wt on same day) for age 18+ 04/11/2026 04/11/2025, 01/31/2025, 01/17/2025, Additional history exists Tetanus booster 02/24/2034 02/25/2024, 07/24, 08/30/2006, Additional history exists Pneumococcal series for age 50+ Completed 06/05/2022, 04/07/2018, 08/30/2006 RSV vaccine for adults or Completed 11/23/2023 Zoster (shingles) series for age 50+ Completed 08/04/2024, 02/25/2024 Hepatitis B series for 19+ Aged Out N o longer eligible based on patient's age to complete this topic Procedures Procedure Name Priority Date/Time Associated Diagnosis Comments POTASSIUM Routine 05/09/2025 12:52 PM CDT Hypokalemia PROTIME-INR Routine 05/09/2025 12:51 PM CDT Paroxysmal atrial fibrillation (HC) Anticoagulation monitoring, INR range 2-3 INR,POCT Routine 03/27/2025 1:41 PM CDT Paroxysmal atrial fibrillation (HC) Anticoagulation monitoring, INR range 2-3 SLEEP STUDY PER PROTOCOL Routine 03/14/2025 9:47 AM CDT GRICEL 06/12/2019 AHI- 13 SCAN-SLEEP STUDY 03/13/2025 12:0 0 AM CDT XR MAMMO RHETT BILAT SCREEN Routine 03/09/2025 1:55 PM CDT Visit for screening mammogram from Last 3 Months Results * POTASSIUM (05/09/2025 12:52 PM CDT) POTASSIUM 4.1 3.5 - 5.3 mmol/L [facility] Blood BLOOD SPECIMEN / Unknown 05/09/2025 12:52 PM CDT 05/09/2025 12:53 PM CDT Krista Sauceda DO CHEMISTRY Final Result [facility] [address] [place] [address], [facility] [address] * (ABNORMAL) PROTIME-INR [[id number]] - Standing Order (05/09/2025 12:51 PM CDT) INR 3.1(H) <1.3 05/09/2025 10:28 PM CDT [facility] PROTIME 36.3(H) 10.6 - 12.4 sec 05/09/2025 10:28 PM CDT [facility] Blood BLOOD SPECIMEN / Unknown [facility] / Unknown 05/09/2025 12:51 PM CDT 05/09/2025 12:51 PM CDT Narrative [facility] - 05/09/2025 10:28 PM CDT Therapeutic Range 2.0-3.0 for most anticoagulated patients 2.5-3.5 [...] if the patient is on UFH. Krista Betancourthilaria [facility] Final Result Performing Organization Address City/[facility]/ZIP Co de Phone Number [facility] [address] [place] [address], [place] * (ABNORMAL) INR - POCT [[id number]] - Standing Order (03/27/2025 1:41 PM CDT) INR 2.3(H) ratio [facility] Comment: INRs >2.9 may be falsely elevated in patients receiving either unfractionated Heparin or Low Molecular Weight Heparin. Follow up testing in a hospital laboratory may be helpful if clinically indicated. INR results of > or = 5.0 should be verified using the standard venipuncture procedure. Reference Range 0.9-1.1 Moderate-intensity Warfarin Therapy 2.0-3.0 Higher-intensity Warfarin Therapy 3.0-4.0 PROTHROMBIN TIMEP 28.0(H) 10.5 - 13.1 sec [facility] Comment: Point of care fingerstick Prothrombin Time/INR results may vary from venous Prothrombin Time/INR methodologies. Any results exhibiting inconsistency with the patient's clinical status should be repeated using a venous Prothrombin Time/INR method. Blood BLOOD SPECIMEN / Unknown 03/27/2025 1:41 PM CDT 03/27/2025 1:41 PM CDT Krista Sauceda LABORATORY Final Result Performing Organization Address City/[facility]/ZIP Co de Phone Number [facility] [address] [place] [address], [place] [phone] [facility] [address] [place] [address] * SCAN-SLEEP STUDY (03/13/2025 12:00 AM CDT) us Scanner OTHER Final Result * XR MAMMO RHETT BILAT SCREEN (03/09/2025 1:55 PM CDT) Anatomical Region Laterality Modality BREASTS, Breast Left, Breast Right Bilateral Mammography Impressions 03/10/2025 8:19 AM CDT There is no radiographic evidence for malignancy. Recommend annual mammograms. MAMMOGRAM ASSESSMENT: ACR 2 Benign PATIENTS: You will also receive a letter with your examination results in an easy to read format. If you have questions about your results, please contact your referring provider. Narrative 03/10/2025 8:19 AM CDT For Patients: As a result of the Cures Act, medical imaging exams and procedure reports are released immediately into your electronic medical record. You may view this report before your referring provider. If you have questions, please contact your health care provider. XR MAMMO RHETT BILAT SCREEN [[id number]] CLINICAL HISTORY: This is an asymptomatic 79 y.o. patient. INDICATION FOR EXAM: Mammogram Screening. TECHNIQUE: CC and MLO views were obtained. This study was evaluated with the assistance of Computer-Aided Detection. Breast Tomosynthesis was used in interpretation. COMPARISON FILMS: Yes 03/08/24 [facility] 02/18/23 [facility] FINDINGS: There are scattered areas of fibroglandular density. No suspicious masses or microcalcifications. There are post surgical changes of left breast. us Krista Gibbons Serafinoliva DO MAMMO Final Result from Last 3 Months Insurance MEDICARE PART A HB ONLY [employer] MR Care Teams Outpatient Psychiatrist Relationship Specialty Start Date End Date Krista Sauceda DO [address] [place] [address] PCP - General Family Practice 07/11/24
--- NOTE | 2025-06-01 15:06 | CRLHL7_ITS ---
For Patients: As a result of the Century Cures Act, medical imaging exams and procedure reports are released immediately into your electronic medical record. You may view this report before your referring provider. If you have questions, please contact your health care provider. Indication: Chest pain Technique: Chest 1 view Comparison: None Findings/Impression: Cardiovascular and mediastinum: Normal heart size with aortic tortuosity and atherosclerotic calcification. Lungs and pleural space: Lungs are clear. No sign of infiltrate or mass. No sign of pleural effusion. No pneumothorax. Bones and soft tissues: Status post right reverse shoulder replacement. Attachment hooks within the left proximal humerus. Dictated by Ronaldo Wen MD @ 06/01/2025 3:33:52 PM (Electronically Signed)
--- NOTE | 2025-06-01 15:08 | ED.GENADULT ---
HPI - General Adult General Chief complaint: Chest Pain Stated complaint: Chest pain Time Seen by Provider: 06/01/25 14:54 History of Present Illness HPI narrative: 79-year-old female presents with about 30 minutes of pain sternal in left lateral chest pain she has a history of hiatal hernia. This came when she was working on her computer. She was not short of breath or diaphoretic. Patient denies having had any chest pain in the past, no history of recent fever chills cough. She has had no leg swelling or edema. She has no history of cardiac issues by her report. She does state that she is on Coumadin. And she also has been borderline diabetic although does not take medicine for this by her report. She does not smoke now but has smoked remotely. Has not had hypertension. She has a history of AFib, she appears to be in sinus rhythm now with her my reading of her EKG showing normal sinus rhythm no acute ST T wave changes probable LVH. She does have a history of a hiatal hernia, has more belching that she has had recently. Related Data Home Medications ?Medication ?Instructions ?Recorded ?Confirmed allopurinol 100 mg tablet 100 mg PO BID 09/01/24 10/02/24 amlodipine 10 mg tablet (Norvasc) 10 mg PO DAILY 09/01/24 10/02/24 ascorbic acid (vitamin C) 500 mg 500 mg PO DAILY 09/01/24 10/02/24 capsule bupropion HCl 300 mg 24 hr tablet, 300 mg PO DAILY 09/01/24 10/02/24 extended release (Wellbutrin XL) calcium 600 mg (as carbonate)-vit 1 tab PO DAILY 09/01/24 10/02/24 D3 10 mcg (400 unit)-minerals tablet coenzyme Q10 100 mg capsule 100 mg PO DAILY 09/01/24 10/02/24 estradiol 0.01% (0.1 mg/gram) 1 g vaginal QWEEK 09/01/24 10/02/24 vaginal cream (Estrace) famotidine 40 mg tablet 40 mg PO BID 09/01/24 10/02/24 furosemide 40 mg tablet (Lasix) 20 mg PO BID 09/01/24 10/02/24 levothyroxine 25 mcg tablet 25 mcg PO DAILY 09/01/24 10/02/24 (Synthroid) melatonin 5 mg capsule 5 mg PO HS 09/01/24 10/02/24 metoprolol succinate 100 mg 100 mg PO DAILY 09/01/24 10/02/24 tablet,extended release 24 hr (Toprol XL) pantoprazole 40 mg tablet,delayed 40 mg PO DAILY 09/01/24 10/02/24 release (Protonix) potassium chloride 10 mEq 10 meq PO DAILY 09/01/24 10/02/24 tablet,extended release(part/cryst) (Klor-Con M) ropinirole 0.25 mg tablet 0.25 mg PO BID 09/01/24 10/02/24 venlafaxine 150 mg 150 mg PO DAILY 09/01/24 10/02/24 capsule,extended release 24 hr (Effexor XR) warfarin 5 mg tablet 5 mg PO DAILY 09/01/24 10/02/24 Previous Rx's ?Medication ?Instructions ?Recorded hydrocodone 5 mg-acetaminophen 325 1 tab PO Q6H PRN pain #25 tabs 09/04/24 mg tablet Allergies Allergy/AdvReac Type Severity Reaction Status Date / Time lisinopril Allergy Cough Verified 10/02/24 13:06 nabumetone Allergy Diarrhea Verified 10/02/24 13:06 NSAIDS (Non-Steroidal Allergy Heartburn Verified 10/02/24 13:06 Anti-Inflamma Sulfa (Sulfonamide Allergy fluid Verified 10/02/24 13:06 Antibiotics) retention Review of Systems Status of ROS: Reports: 6 or more systems reviewed and unremarkable except as noted in History and below [facility] Medical History Urinary incontinence ?R32 - Unspecified urinary incontinence (ICD-10) Sleep apnea ?G47.30 - Sleep apnea, unspecified (ICD-10) Prediabetes ?R73.03 - Prediabetes (ICD-10) Hypothyroidism ?E03.9 - Hypothyroidism, unspecified (ICD-10) Hypertension ?I10 - Essential (primary) hypertension (ICD-10) Hyperlipidemia ?E78.5 - Hyperlipidemia, unspecified (ICD-10) GERD (gastroesophageal reflux disease) ?K21.9 - Gastro-esophageal reflux disease without esophagitis (ICD-10) 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890 - Other specified postprocedural states (ICD-10) Hx of shoulder surgery ?Z98.890 - Other specified postprocedural states (ICD-10) Social History Smoking Status: Never smoker Do you use any of these nicotine containing products: None How often do you have a drink containing alcohol: never How often do you have six or more drinks on one occasion: Never AUDIT-C Alcohol total score: 0 Non-prescribed substance use: denies use Caffeine: Yes Are you using contraception or practicing any form of control: No Exam Narrative: Exam Narrative: Objective: Vital signs show slightly elevated blood pressure afebrile O2 sat 94% on room air Alert orient x3, no distress No facial asymmetry neck is supple chest is clear heart rhythm regular 2/6 systolic murmur occasional ectopic beat patient has a mildly palpable tenderness inter parasternal area on the left, but it is not exactly the same she fell today. Palpation definitely does make it worse. abdomen obese benign nontender no masses Extremities show trace edema bilaterally no palpable cords in the calves . neurologic is nonfocal in upper lower extremities. Skin is warm and dry in the periphery. Const: Vital Signs, click to edit/add: Vital Signs - 24 hr 06/01/25 14:54 06/01/25 15:36 06/01/25 15:42 Temperature 98.8 F Pulse Rate Pulse Rate [Pulse Oximeter] 72 Respiratory Rate 20 10 L 9 L Blood Pressure 147/77 H Blood Pressure [Ri ght Upper Arm] 162/90 H Pulse Oximetry 94 Oxygen Delivery Me thod Room Air 07/11/25 15:45 06/01/25 16:00 06/01/25 16:02 Temperature Pulse Rate 70 Pulse Rate [Pulse Oximeter] Respiratory Rate 24 9 L 26 H Blood Pressure 142/73 H Blood Pressure [Ri ght Upper Arm] Pulse Oximetry 97 Oxygen Delivery Me thod 06/01/25 16:15 06/01/25 16:21 06/01/25 16:30 Temperature Pulse Rate 75 63 65 Pulse Rate [Pulse Oximeter] Respiratory Rate 12 22 26 H Blood Pressure 147/80 H Blood Pressure [Ri ght Upper Arm] Pulse Oximetry 93 96 94 Oxygen Delivery Me thod 06/01/25 16:42 06/01/25 16:43 06/01/25 16:45 Temperature Pulse Rate 61 60 61 Pulse Rate [Pulse Oximeter] Respiratory Rate 16 15 11 L Blood Pressure 145/80 H Blood Pressure [Ri ght Upper Arm] Pulse Oximetry 96 94 97 Oxygen Delivery Me thod 06/01/25 17:00 06/01/25 17:02 06/01/25 17:15 Temperature Pulse Rate 61 58 L 60 Pulse Rate [Pulse Oximeter] Respiratory Rate 10 L 16 15 Blood Pressure 146/80 H Blood Pressure [Ri ght Upper Arm] Pulse Oximetry 97 99 99 Oxygen Delivery Me thod 06/01/25 17:22 06/01/25 17:30 06/01/25 17:42 Temperature Pulse Rate 64 59 L 61 Pulse Rate [Pulse Oximeter] Respiratory Rate 18 10 L 22 Blood Pressure 104/80 162/141 H Blood Pressure [Ri ght Upper Arm] Pulse Oximetry 95 94 94 Oxygen Delivery Me od 06/01/25 17:45 Temperature Pulse Rate 60 Pulse Rate [Pulse Oximeter] Respiratory Rate 20 Blood Pressure Blood Pressure [Ri ght Upper Arm] Pulse Oximetry 94 Oxygen Delivery Me thod Course Vital Signs Vital signs: Initial Vital Signs Temperature 98.8 F 06/01/25 14:54 Temperature Source Temporal Artery Scan 06/01/25 14:54 Pulse Rate 72 06/01/25 14:54 Respiratory Rate 20 06/01/25 14:54 Blood Pressure 162/90 H 06/01/25 14:54 Blood Pressure Mean 114 H 06/01/25 14:54 Blood Pressure Position Sitting 06/01/25 14:54 Pulse Oximetry 94 06/01/25 14:54 Oxygen Delivery Method Room Air 06/01/25 14:54 Vital Signs Temperature 98.8 F 06/01/25 14:54 Pulse Rate 72 06/01/25 14:54 Respiratory Rate 20 06/01/25 14:54 Blood Pressure 162/90 H 06/01/25 14:54 Pulse Oximetry 94 06/01/25 14:54 Oxygen Delivery Method Room Air 06/01/25 14:54 Temperature 98.8 F 06/01/25 14:54 Pulse Rate 60 06/01/25 17:45 Respiratory Rate 20 06/01/25 17:45 Blood Pressure 162/141 H 06/01/25 17:42 Pulse Oximetry 94 06/01/25 17:45 Oxygen Delivery Method Room Air 06/01/25 14:54 Medications Administered Medications: Discontinued Medications Generic Name Dose Route Start Last Admin Trade Name Rios PRN Reason Stop Dose Admin Aspirin 324 mg 06/01/25 15:05 06/01/25 16:04 Aspirin 81 Mg Tab.Chew PO 06/01/25 15:06 324 mg ONCE ONE Administration Sodium Chloride 500 mls @ 500 mls/hr 06/01/25 15:05 06/01/25 17:05 0.9 % Sodium Chloride 500 Ml IV 06/01/25 16:04 Infused .Q1H ONE Infusion Morphine Sulfate 2 mg 06/01/25 15:05 06/01/25 16:04 Morphine 4 Mg/Ml Inj IVP 06/01/25 15:06 2 mg ONCE ONE Administration Pantoprazole Sodium 40 mg 06/01/25 15:05 06/01/25 16:03 Pantoprazole Sodium 40 Mg Inj IVP 06/01/25 15:06 40 mg ONCE ONE Administration Medical Decision Making [facility] Narrative Medical decision making narrative: [age] year white female with episode of chest pain, which is improving. This been for about the last 1/2 hour. She was not diaphoretic but did have pain in her substernal area radiating little bit for left chest. Did not go to her jaw or arm. She is not short of breath or diaphoretic. She has had a lot of belching recently has had a hiatal hernia. Will get her IV Protonix, aspirin, IV morphine, IV fluid. Will put on a cardiac cath lab manager,, oximeter. Need to rule out acute coronary syndrome or other intrathoracic pathology. Electrolytes and labs. Troponin. Coags. Disposition pending findings above. Addendum 5:44 p.m.: The patient's chest x-ray looks largely unremarkable. Her EKG shows mild LVH, no acute ST T wave changes by my read. Laboratory studies look reassuring. Her troponin is negative x2. ProBNP elevated at 473. The rest of her labs look largely unremarkable including white count hemoglobin chemistry profile. Patient feels markedly better. I think she could certainly have some hiatal hernia reflux going on could have esophageal spasm. She will double her pantoprazole for a couple of days and then return to normal dose. Follow up with regular doctor in the next few days. Return here as needed light activity over the next several days. Return as needed. Lab Data Labs: Lab Results 06/01/25 06/01/25 Range/Units 15:21 17:01 WBC 10.07 (4.50-11.00) K/uL RBC 4.69 (4.00-5.20) m/uL Hgb 13.7 (12.0-16.0) gm/dL Hct 41.8 (33.0-51.0) % MCV 89 (80-100) fL MCH 29 (26-34) pg MCHC 33 (32-36) gm/dL RDW Coeff of Naomi 14.9 (11.5-15.5) % Plt Count 181 (140-440) K/uL Neut % (Auto) 49.0 (42.0-72.0) % Lymph % (Auto) 33.6 (20-44) % Cass % (Auto) 11.5 H (0.0-11.0) % Eos % (Auto) 5.2 (0.0-7.0) % Baso % (Auto) 0.4 (0.0-3.0) % Neut # (Auto) 4.94 (1.7-7.0) K/uL Lymph # (Auto) 3.38 H (0.90-2.90) K/uL Cass # (Auto) 1.20 H (0.00-0.90) K/UL Eos # (Auto) 0.52 H (0.00-0.50) K/uL Baso # (Auto) 0.04 (0.00-0.30) K/uL Abs Immat Gran (auto) 0.03 (0.00-0.30) K/uL Imm/Tot Granulo (auto) 0.3 % INR 1.44 H (0.91-1.10) APTT 36 H (23-33) Seconds Sodium 141 (135-149) mmol/L Potassium 4.1 (3.6-5.1) mmol/L Chloride 110 (96-114) mmol/L Carbon Dioxide 22 (20-32) mmol/L Anion Gap 9 (7-15) mEq/L BUN 23 (7-30) mg/dL Creatinine 0.9 (0.5-1.5) mg/dL Estimated Creat Clear 43.40 Estimated GFR 65 ml/min Glucose 103 (60-115) mg/dL Calcium 9.5 (8.4-10.6) mg/dL Total Bilirubin 0.4 (0.1-1.5) mg/dL Direct Bilirubin 0.1 (0.0-0.5) mg/dL AST 35 (12-35) U/L ALT 28 (4-35) U/L Alkaline Phosphatase 65 (40-150) U/L C-Reactive Protein 0.6 (0.5-1.0) mg/dL NT-Pro-B Natriuret Pep 473 H (See Note) pg/mL Total Protein 7.2 (6.0-8.3) g/dL Albumin 4.1 (3.3-5.0) g/dL Amylase 71 (18-89) U/L POC Troponin I 0.00 L 0.00 L (0.01-0.04) ng/ml Discharge Plan Discharge Clinical Impression: Chest pain Patient Disposition: Home w/ Parent or Adult Condition: Improved Additional Instructions: Light activity, increase her pantoprazole to twice a day given, follow-up in the next 2-3 days. With primary care. Return sooner problems or concerns. Activity Level: Light activity Discharge Diet: Regular Prescriptions: No Action allopurinol 100 mg tablet 100 mg PO BID amlodipine [Norvasc] 10 mg tablet 10 mg PO DAILY ascorbic acid (vitamin C) 500 mg capsule 500 mg PO DAILY bupropion HCl [Wellbutrin XL] 300 mg tablet extended release 24 hr 300 mg PO DAILY calcium carbonate-vit D3-min 600 mg-10 mcg (400 unit) tablet 1 tab PO DAILY coenzyme Q10 100 mg capsule 100 mg PO DAILY estradiol [Estrace] 0.01 % (0.1 mg/gram) cream 1 g vaginal QWEEK famotidine 40 mg tablet 40 mg PO BID furosemide [Lasix] 40 mg tablet 20 mg PO BID levothyroxine [Synthroid] 25 mcg tablet 25 mcg PO DAILY melatonin 5 mg capsule 5 mg PO HS metoprolol succinate [Toprol XL] 100 mg tablet extended release 24 hr 100 mg PO DAILY pantoprazole [Protonix] 40 mg tablet,delayed release (DR/EC) 40 mg PO DAILY potassium chloride [Klor-Con M10] 10 mEq tablet,ER particles/crystals 10 meq PO DAILY ropinirole 0.25 mg tablet 0.25 mg PO BID venlafaxine [Effexor XR] 150 mg capsule,extended release 24hr 150 mg PO DAILY warfarin 5 mg tablet 5 mg PO DAILY hydrocodone-acetaminophen 5-325 mg tablet 1 tab PO Q6H PRN (Reason: pain) Qty: 25 0RF Follow Up/Referrals: Krista Sauceda DO [Primary Care Provider, Family Practice] Stand Alone Forms: [facility] Info Instructions
[2025-06-01 15:39] LABS: Troponin, Point-of-Care* 0.00 ng/ml (0.01-0.04)
[2025-06-01 16:00] LABS: Hematocrit 41.8 % (33.0-51.0); Hemoglobin* 13.7 gm/dL (12.0-16.0); Immature Granulocytes Abs Auto 0.03 K/uL (0.00-0.30); Immature Granulocytes Pct Auto 0.3 %; Lymphocytes Absolute Auto 3.38 K/uL (0.90-2.90); Mean Corpuscular HGB Conc 33 gm/dL (32-36); Mean Corpuscular Hemoglobin 29 pg (26-34); Mean Corpuscular Volume 89 fL (80-100); RDW Coefficient of Variation % 14.9 % (11.5-15.5); Red Blood Count 4.69 m/uL (4.00-5.20); White Blood Count* 10.07 K/uL (4.50-11.00)
[2025-06-01 16:03] LABS: Albumin* 4.1 g/dL (3.3-5.0); Chloride* 110 mmol/L (96-114); Potassium* 4.1 mmol/L (3.6-5.1); Slide Review Reflex No; Sodium* 141 mmol/L (135-149)
[2025-06-01] MEDS: 0.9 % SODIUM CHLORIDE 500 ML 500 ML IV (16:03)
[2025-06-01] MEDS: PANTOPRAZOLE SODIUM 40 MG INJ IVP (16:03)
[2025-06-01] MEDS: MORPHINE 4 MG/ML INJ 2 MG IVP (16:04)
[2025-06-01] MEDS: ASPIRIN 81 MG TAB.CHEW 324 MG PO (16:04)
[2025-06-01 16:05] LABS: Blood Urea Nitrogen* 23 mg/dL (7-30); Creatinine* 0.9 mg/dL (0.5-1.5); Est. Creatinine Clearance* 43.40; Estimated Glomerular Filt Rate 65 ml/min
[2025-06-01 16:06] LABS: Alanine Aminotransferase* 28 U/L (4-35); Alkaline Phosphatase* 65 U/L (40-150); Anion Gap 9 mEq/L (7-15); Aspartate Amino Transferase* 35 U/L (12-35); Bilirubin Direct* 0.1 mg/dL (0.0-0.5); Bilirubin Total* 0.4 mg/dL (0.1-1.5); Calcium* 9.5 mg/dL (8.4-10.6); Carbon Dioxide* 22 mmol/L (20-32); Glucose* 103 mg/dL (60-115); Total Protein* 7.2 g/dL (6.0-8.3)
[2025-06-01 16:26] LABS: INR 1.44 (0.91-1.10); NT Pro B Type NatriureticPept* 473 pg/mL (See Note); Prothrombin Time 18.5 Seconds
[2025-06-01 17:32] LABS: Troponin, Point-of-Care* 0.00 ng/ml (0.01-0.04)
== END 2025-06-01 18:00 | disposition home or self-care (01) ==
PROVIDERS: Emergency Provider Family Medicine; PCP Family Medicine
DX: R07.9 Chest pain, unspecified (principal); R09.89 Other specified symptoms and signs involving the circulatory and respiratory systems
CPT/HCPCS: 36415; 71045; 80048; 80076; 82150; 83880; 84484; 85025; 85610; 85730; 86140; 93005; 94761; 96374; 96375; 99284; 99285; A9270; J2270; J2470; J7030

== ENCOUNTER 2025-07-06 10:20 | Outpatient (CLI) | payer MEDICARE, SELFPAY | END 2025-07-06 10:21 | disposition home or self-care (01) | LOC: OP CLINIC 10:20 | PROVIDERS: PCP Family Medicine; Visit Provider Internal Medicine Gastroenterology | DX: Z53.9 Procedure and treatment not carried out, unspecified reason (principal); K22.70 Barrett's esophagus without dysplasia | CPT/HCPCS: J2704; J3490 ==

== ENCOUNTER 2025-08-03 10:36 | Outpatient (CLI) | payer MEDICARE, SELFPAY ==
--- NOTE | 2025-08-03 11:44 | P.ANES_ITS ---
Anesthesia Charges Start Date/Time Anesthesia Start Date: 08/03/25 Anesthesia Start Time: 11:50 Stop Date/Time Anesthesia Stop Date: 08/03/25 Anesthesia Stop Time: 12:43 Summary Extremes of Age - Over 70 or under 1: MDA Coding CPT Codes CPT Codes: ANES UPR LWR GI NDSC PX - 71214 ([id number]) P3 - PATIENT W/SEVERE SYS DISEASE, QK - WAREHOUSE LOGISTICS MANAGER 2-4 CNCRNT ANES PROC, QX - CHILDREN COUNSELOR SVC W/ MD MED DIRECTION Additional Codes: Summary - Extremes of Age - Over 70 or under 1: MDA ([id number])
--- NOTE | 2025-08-03 11:44 | W.ANESCHARGE ---
Anesthesia Charges Start Date/Time Anesthesia Start Date: 08/03/25 Anesthesia Start Time: 11:50 Stop Date/Time Anesthesia Stop Date: 08/03/25 Anesthesia Stop Time: 12:43 Summary Extremes of Age - Over 70 or under 1: MDA Coding CPT Codes CPT Codes: ANES UPR LWR GI NDSC PX - 82553 ([id number]) P3 - PATIENT W/SEVERE SYS DISEASE, QK - CUSTOMER EXPERIENCE PROFESSIONAL 2-4 CNCRNT ANES PROC, QX - YARN SKEINS EXAMINER SVC W/ MD MED DIRECTION Additional Codes: Summary - Extremes of Age - Over 70 or under 1: MDA ([id number])
--- NOTE | 2025-08-03 12:49 | P.ANES_ITS ---
Anesthesia Charges Start Date/Time Anesthesia Start Date: 08/03/25 Anesthesia Start Time: 11:50 Stop Date/Time Anesthesia Stop Date: 08/03/25 Anesthesia Stop Time: 12:43 Coding CPT Codes CPT Codes: ANES UPR GI NDSC PX NOS - 75939 ([id number]) P3 - PATIENT W/SEVERE SYS DISEASE, QK - FOUNDATION DRILL OPERATOR HELPER 2-4 CNCRNT ANES PROC, QX - MARKETING SUPPORT MANAGER SVC W/ MD MED DIRECTION
--- NOTE | 2025-08-03 12:49 | W.ANESCHARGE ---
Anesthesia Charges Start Date/Time Anesthesia Start Date: 08/03/25 Anesthesia Start Time: 11:50 Stop Date/Time Anesthesia Stop Date: 08/03/25 Anesthesia Stop Time: 12:43 Coding CPT Codes CPT Codes: ANES UPR GI NDSC PX NOS - 61958 ([id number]) P3 - PATIENT W/SEVERE SYS DISEASE, QK - FINANCIAL SERVICES REPRESENTATIVE 2-4 CNCRNT ANES PROC, QX - HEAD CAGER SVC W/ MD MED DIRECTION
== END 2025-08-03 10:37 | disposition home or self-care (01) ==
LOC: OP CLINIC 10:36
PROVIDERS: PCP Family Medicine; Visit Provider Internal Medicine Gastroenterology
DX: Z12.11 Encounter for screening for malignant neoplasm of colon (principal); D12.3 Benign neoplasm of transverse colon; K22.70 Barrett's esophagus without dysplasia; K57.30 Diverticulosis of large intestine without perforation or abscess without bleeding; K31.89 Other diseases of stomach and duodenum
CPT/HCPCS: 00731; 00813; 43239; 45385; 88305; 88342; 99100; J2704; J3490